=== PATIENT | female | born 1975 | race African-American/Black ===

== ENCOUNTER 2018-10-23 05:31 | Day surgery (SDC) | payer OTHER ==
[~2018-10-23] VITALS: Ht 152.4 cm; Wt 137.0 kg
[2018-10-23] VITALS (14 sets, daily range): BP systolic 110–155; BP diastolic 59–84
[~2018-10-23 05:31] MED LIST: ATENOLOL25 MG ORAL; METFORMIN HCL500 M4 ORAL; TRIAMTERENE-HC1 EAC6 ORAL
[2018-10-23] MEDS ORDERED: celeBREX 200mg Cap **SURGERY PATIENTS ONLY ORAL ONE (06:00)
[2018-10-23] MEDS ORDERED: ceFAZolin 1gm IVPB IVPB ONE ×2 (06:00)
[2018-10-23] MEDS ORDERED: oxyCONTIN 20mg tab ORAL ONE (06:00)
[2018-10-23] MEDS ORDERED: METHIMAZOLE10 MG PO (06:23)
[2018-10-23] MEDS ORDERED: fentaNYL 100 mcg/2 mL IV ONE (06:59)
[2018-10-23] MEDS ORDERED: Midazolam 2mg/2ml Inj ONE (06:59)
[2018-10-23] MEDS ORDERED: Ketorolac 30mg Inj ONE (07:02)
[2018-10-23] MEDS ORDERED: Lidocaine 1% MPF 10mg/ml 5ml ONE (07:02)
[2018-10-23] MEDS ORDERED: Propofol 200mg/20ml IV ONE (07:02)
--- NOTE | 2018-10-23 07:19 | Pre-Procedure Note/Attestation ---
Pre-Procedure Note/Attestation Complete Prior to Procedure Planned Procedure: right Procedure Narrative: carpel tunnel release Indications for Procedure Pre-Operative Diagnosis: right carpel tunnel syndrome Attestation I attest that I discussed the nature of the procedure; its benefits; risks and complications; and alternatives (and the risks and benefits of such alternatives ), prior to the procedure, with the patient (or the patient's legal home office representative). I attest that, if there was a reasonable possibility of needing a blood transfusion, the patient (or the patient's legal home office representative) was given the [facility] standardized written summary, pursuant to the Maikel Kaitlin Blood Safety Act ([place] Health and Safety Code # 1645, as amended). I attest that I re-evaluated the patient just prior to the surgery and that there has been no change in the patient's H&P, except as documented below: Emmanuel Morin MD October 23, 2018 07:19
--- NOTE | 2018-10-23 07:20 | Operative Note - PDOC ---
Operative Note Operative Note Pre-op Diagnosis: right carpel tunnel syndrome Procedure: see op report Post-op Diagnosis: same as pre-op plus Operative Findings: consistent w/pre-op dx studies Anesthesia: MAC Specimen: none Complications: none Condition: stable Estimated Blood Loss: none Implant(s) used?: No Emmanuel Morin MD October 23, 2018 07:20
[2018-10-23] MEDS ORDERED: Bupivacaine 0.25% Inj 30ml INJ ONE (07:21)
[2018-10-23] MEDS ORDERED: Sterile Water Irrig 1000ml IRRIG ONE (07:43)
[2018-10-23] MEDS ORDERED: LR 1000ml ONE (07:43)
[2018-10-23] MEDS ORDERED: NS Irrig 1000ml ONE (07:43)
[2018-10-23] MEDS ORDERED: LR 1000ml 1,000 ML IVLG SCH (08:31)
--- NOTE | 2018-10-23 08:39 | Anethesia Preoperative Eval ---
Anesthesia Pre-op PMH/ROS General Date of Evaluation: October 23, 2018 Time of Evaluation: 07:20 Anesthesiologist: Eddie ASA Score: ASA 3 Mallampati Score Class I : Soft palate, uvula, fauces, pillars visible Class II: Soft palate, uvula, fauces visible Class III: Soft palate, base of uvula visible Class IV: Only hard plate visible Mallampati Classification: Class III Surgeon: Mikel Diagnosis: R CTS Surgical Procedure: R CT release Anesthesia History: none Family History: no anesthesia problems Allergies: Coded Allergies: No Known Allergies (Unverified , 10/23/18) Medications: see eMAR Patient NPO?: Yes Past Medical History Cardiovascular: Reports: HTN; Denies: CAD, CT, valve dz, arrhythmia, other Pulmonary: Reports: EDELMIRA; Denies: asthma, COPD, other Gastrointestinal/Genitourinary: Reports: GERD; Denies: CRI, ESRD, other Neurologic/Psychiatric: Reports: depression/anxiety; Denies: dementia, CVA, TIA, other Endocrine: 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 Exam Physician Exam Last Vital Signs Date Time Temp Pulse Resp B/P (MAP) Pulse Ox O2 Delivery O2 Flow Rate FiO2 10/23/18 06:19 98.3 102 18 110/59 98 Room Air Constitutional: NAD Neurologic: CN 2-12 intact Cardiovascular: RRR, no M/R/G Respiratory: other - diminished breath sounds Gastrointestinal: other - obesity Airway Exam Mallampati Score: Class III MO: limited Neck: short ROM: limited Teeth: intact Dentures: no upper, no lower Anesthesia Pre-op A/P Labs see chart Urine Test Test 10/23/18 05:35 Urine HCG, Qualitative Negative (NEGATIVE) Studies Pre-op Studies: EKG - SR Risk Assessment & Plan Assessment: ASA 3 Plan: GA with LMA Status Change Before Surgery: No Pre-Antibiotics Drug: Ancef 2gr. Given Within 1 Hr of Incision: Yes Time Given: 08:15 Cheng Morgan MD October 23, 2018 08:39
[2018-10-23] MEDS ORDERED: Meperidine 50mg/ml Inj(FOR RIGORS ONLY) IV PRN (08:45)
[2018-10-23] MEDS ORDERED: Ketorolac 30mg Inj IV PRN (08:45)
[2018-10-23] MEDS ORDERED: DiphenhydrAMINE 50mg/ml Inj IVP PRN (08:45)
--- NOTE | 2018-10-23 08:57 | Immediate Post-Op Evaluation ---
Immediate Post-Op Evalulation Immediate Post-Op Evalulation Procedure: R CT release Date of Evaluation: October 23, 2018 Time of Evaluation: 08:56 IV Fluids: 400 Blood Products: none Estimated Blood Loss: min Urinary Output: none Blood Pressure Systolic: 156 Blood Pressure Diastolic: 68 Pulse Rate: 86 Respiratory Rate: 22 O2 Sat by Pulse Oximetry: 98 Temperature (Fahrenheit): 97.8 Pain Score (1-10): 2 Nausea: No Vomiting: No Complications none Patient Status: awake, patent, none Hydration Status: adequate Cheng Morgan MD October 23, 2018 08:57
--- NOTE | 2018-10-23 10:20 | 48 Hour Post Anesthesia Eval ---
Post Anesthesia Evaluation Procedure: R CT release Date of Evaluation: October 23, 2018 Time of Evaluation: 10:18 Blood Pressure Systolic: 122 0: 74 Pulse Rate: 84 Respiratory Rate: 22 Temperature (Fahrenheit): 97.6 O2 Sat by Pulse Oximetry: 98 Airway: patent Nausea: No Vomiting: No Hydration Status: adequate Cardiopulmonary Status: stable Mental Status/LOC: patient returned to baseline Follow-up Care/Observations: n/a Post-Anesthesia Complications: none Follow-up care needed: ready to discharge Cheng Morgan MD October 23, 2018 10:20
[2018-10-23] MEDS ORDERED: Hydromorphone 0.5mg/0.5ml inj IVP SCH (11:30)
[2018-10-23] MEDS ORDERED: Metoclopramide 10mg/2ml Inj IVP SCH (11:30)
[2018-10-23] MEDS ORDERED: HYDROcodone/Acetamin 5/325 tab ORAL PRN (17:01)
[2018-10-23] MEDS ORDERED: HYDROmorphone 1mg/ml Carpuject SUBQ PRN (17:01)
[2018-10-23] MEDS ORDERED: D5 1/2NS 1,000 ML IV SCH (17:01)
[2018-10-23] MEDS ORDERED: Tylenol #3 tab (300mg/30mg) ORAL PRN (17:01)
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
== END 2018-10-23 15:35 | disposition home or self-care (01) ==
LOC: SUR 05:31 → EDBD 05:31 → SUR 15:35
DX: G56.01 Carpal tunnel syndrome, right upper limb (principal); I10 Essential (primary) hypertension; G47.33 Obstructive sleep apnea (adult) (pediatric); K21.9 Gastro-esophageal reflux disease without esophagitis; F41.9 Anxiety disorder, unspecified; F32.9 Major depressive disorder, single episode, unspecified; E11.9 Type 2 diabetes mellitus without complications; E66.9 Obesity, unspecified
CPT/HCPCS: 25105; 64721; 81025; J0690; J1170; J1885; J2175; J2250; J2405; J2704; J2765; J3010; J3490; 94003; 94150